=== PATIENT | male | born 1965 | race Two or more races ===

== ENCOUNTER 2023-04-09 09:48 | Emergency (ER) | payer OTHER ==
[~2023-04-09] VITALS: Ht 167.6 cm; Wt 68.0 kg
[2023-04-09 10:49] LABS: HEMATOCRIT 39.9 % (39.0-48.0); HEMOGLOBIN 13.5 g/dL (13-16.00); MEAN CELL VOLUME 87.2 fL (80.0-100.00); MEAN CORPUSCULAR HEMOGLOBIN 29.5 pg (27.00-32.0); MEAN CORPUSCULAR HGB CONC 33.9 g/dl (32.0-36.0); PLATELET COUNT 164 K/uL (150-450); RED BLOOD COUNT 4.57 M/uL (4.00-6.00); RED CELL DISTRIBUTION WIDTH 13.8 % (11.5-14.5)
[2023-04-09] MEDS ORDERED: TUSNEL LIQUID178 ML PO (11:45)
[2023-04-09] MEDS ORDERED: ZITHROMAX500 MG PO (11:45)
== END 2023-04-09 12:44 | disposition home or self-care (01) ==
LOC: ER 09:48
PROVIDERS: General Practice
DX: R09.81 Nasal congestion (principal); Z20.822 Contact with and (suspected) exposure to COVID-19